=== PATIENT | male | born 1955 | race Caucasian/White ===

== ENCOUNTER 2022-01-14 13:50 | Outpatient (CLI) | payer MEDICARE, BC | END 2022-01-14 13:51 | disposition home or self-care (01) | LOC: CSHULT 13:50 | PROVIDERS: ATTEND Family Medicine | DX: N50.89 Other specified disorders of the male genital organs (principal) | CPT/HCPCS: 76870; 93976 ==

== ENCOUNTER 2024-11-15 00:02 | Emergency (ER) | payer MEDICARE ==
[2024-11-15] MEDS ORDERED: oxyCODONE 5 MG TAB ONE (00:26)
== END 2024-11-15 02:00 | disposition home or self-care (01) ==
LOC: CSHERS 00:02
DX: M79.671 Pain in right foot (principal); F17.210 Nicotine dependence, cigarettes, uncomplicated; I10 Essential (primary) hypertension